=== PATIENT | male | born 1955 | race Caucasian/White ===

== ENCOUNTER 2017-10-06 13:20 | Observation (INO) ==
--- NOTE | 2017-10-06 14:06 | Emergency Department Note ---
Disposition Clinical Impression: Chest pain Qualifiers: Chest pain type: unspecified Qualified Code(s): R07.9 - Chest pain, unspecified Disposition: Admitted As Inpatient Condition: Good Referrals: Fermin Chris Jr, MD [Primary Care Provider] - Forms: ED Satisfaction Letter Time of Disposition: 15:16 Chest Pain HPI - General Chief Complaint: ED Chest Pain Stated Complaint: chest pain Time Seen by Provider: 10/06/17 13:47 Source: patient, family Mode of arrival: ambulatory Limitations: no limitations Vital Signs Reviewed: Yes Nursing Notes Reviewed: Yes - History of Present Illness HPI Narrative: Intermittent nonexertional chest pain since yesterday. Centrally located substernal without radiation. Pain is similar to when he had a myocardial infarction in 2002 when 3 stents were deployed. He had a stress test last year with no cardiac catheterization since 2002. Associated dizziness when he stands. Nonproductive cough. Left lower odontalgia. Pt complaint: chest pain Onset (ago): day(s) Duration: intermittent Onset: during rest Pain Location: substernal Severity scale (1-10): 5 Pain Radiation: none Improves with: nothing Worsens with: nothing Treatments prior to arrival chest pain: aspirin - Related Data Home Medications Medication Instructions Recorded Confirmed Aspirin [Ecotrin] 325 mg PO DAILY 05/14/16 10/06/17 Atorvastatin Calcium [Lipitor] 20 mg PO DAILY 05/14/16 10/06/17 Clopidogrel [Plavix] 75 mg PO DAILY 05/14/16 10/06/17 Lisinopril [Zestril] 10 mg PO DAILY 05/14/16 10/06/17 Metoprolol XL (24 HR) Succ [Toprol 100 mg PO DAILY 05/14/16 10/06/17 Xl] Allergies Allergy/AdvReac Type Severity Reaction Status Date / Time No Known Allergies Allergy Verified 10/06/17 14:39 All systems ED: reviewed and negative except as stated. Constitutional: Reports: as per HPI Eyes: Reports: as per HPI ENT ED: Reports: dental pain Cardiovascular: Reports: chest pain Respiratory: Reports: cough Gastrointestinal: Reports: as per HPI Genitourinary: Reports: as per HPI Musculoskeletal: Reports: as per HPI Integumentary: Reports: as per HPI Neurological: Reports: other (Dizziness) Psychiatric: Reports: as per HPI Endocrine: Reports: as per HPI Hematological/Lymphatic: Reports: as per HPI Allergic/Immunologic: Reports: as per HPI Chest Pain PMH - Past Medical History Medical history: Reports: coronary artery disease, hyperlipidemia, hypertension Psychiatric history: Reports: no psych history - Social History Smoking Status: Current every day smoker Alcohol use: Reports: rarely Drug use: Reports: none Physical Exam - General Limitations: no limitations General appearance: alert - Head Head exam: atraumatic - Eye Eye exam: Present: normal appearance - ENT ENT exam: normal exam - Neck Neck exam: Present: normal inspection, full ROM - Chest Chest inspection: Present: normal inspection, symmetric chest wall rise - Respiratory Respiratory exam: Present: other (Expiratory rhonchi). Absent: respiratory distress - Cardiovascular Cardiovascular exam: Present: regular rate, normal rhythm, normal heart sounds - Abdominal Exam Abdominal exam: Present: soft, Non-Tender Abdominal tenderness: Absent: RUQ, epigastrium - Rectal Exam Rectal exam: Present: deferred - Extremities Exam Extremities exam: Present: normal inspection - Neurological Exam Neurological exam: Present: alert, oriented X3, CN II-XII intact - Psychiatric Psychiatric exam: Present: normal affect, normal mood - Skin Skin exam: Present: warm, dry, intact Course Course Narrative: Patient with a known history of coronary artery disease and 3 cardiac stents deployed in 2002 presents with intermittent chest pain since yesterday. Pain free at the time of my exam. ECG obtained and reviewed by me. Workup initiated. - Reevaluation(s) Reevaluation #1: Test results discussed with patient and family. I will request admission Vital Signs Temperature 98.6 F 10/06/17 13:22 Pulse Rate 87 10/06/17 13:22 Respiratory Rate 14 10/06/17 13:22 Blood Pressure 140/78 10/06/17 13:22 O2 Sat by Pulse Oximetry 96 10/06/17 13:22 Temperature 98.6 F 10/06/17 14:20 Pulse Rate 87 10/06/17 14:20 Respiratory Rate 14 10/06/17 14:20 Blood Pressure 140/78 10/06/17 14:20 O2 Sat by Pulse Oximetry 96 10/06/17 14:20 Oxygen Delivery Oxygen Delivery Room Air Chest Pain - Lab Data Lab results reviewed: Yes I reviewed the patient's lab results. Result diagrams: 10/06/17 14:02 10/06/17 14:02 Lab Results 10/06/17 10/06/17 10/06/17 Range/Units 14:02 14:02 14:02 WBC 13.2 H (4.3-11.1) K/mcL RBC 5.01 (4.19-5.50) M/mcL Hgb 14.8 (12.9-16.9) g/dL Hct 44.5 (37.5-50.1) % MCV 88.8 (83.0-100.0) fL MCH 29.5 (28.0-33.3) pg MCHC 33.3 (31.6-35.5) g/dL RDW 13.4 (11.5-14.5) % Plt Count 290 (140-400) K/mcL MPV 9.4 (9.4-12.4) fL Immature Gran % 0.4 (0-4) % Seg Neutrophils % 69.5 % Lymphocytes % 19.9 % Monocytes % 7.9 % Eosinophils % 1.8 % Basophils % 0.5 % Neutrophils # 9.2 H (1.6-8.9) K/mcL Lymphocytes # 2.6 (0.6-4.6) K/mcL Monocytes # 1.0 (0.0-1.3) K/mcL Eosinophils # 0.2 (0.0-0.6) K/mcL Basophils # 0.1 (0.0-0.2) K/mcL PT 11.9 (9.4-12.1) Seconds INR 1.1 APTT 28.6 (26.0-36.0) Seconds Sodium 136 (136-145) mEq/L Potassium 3.8 (3.5-5.1) mEq/L Chloride 105 (98-107) mEq/L Carbon Dioxide 25 (23-29) mEq/L BUN 18 (8-23) mg/dL Creatinine 0.91 (0.70-1.30) mg/dL Est GFR ( Amer) > 60 (> 60) Est GFR (Non-Af Amer) > 60 (> 60) BUN/Creatinine Ratio 20 (6-26) Glucose 93 (70-105) mg/dL Calculated Osmolality 284 (280-300) Calcium 9.3 (8.6-10.3) mg/dL Total Bilirubin 0.5 (0.3-1.0) mg/dL AST 16 (13-39) Units/L ALT 16 (7-52) Units/L Alkaline Phosphatase 91 (34-104) Units/L Troponin I < 0.03 (< 0.04) ng/mL Serum Total Protein 7.0 (6.4-8.9) g/dL Albumin 4.0 (3.5-5.7) g/dL Globulin 3.0 (2.4-3.5) g/dL Albumin/Globulin Ratio 1.3 (1.1-2.2) - Radiology Data Radiology results reviewed: Yes I reviewed the patient's radiology results. - EKG Data EKG attestation: Yes I reviewed and interpreted this EKG. EKG results narrative: Normal sinus rhythm rate 68 CA 142 QRS 94 QT/QTC 368/35. No acute ST segment elevation. Study compared to previous dated 05/14/69 Heart Score - Score History: Slightly Suspicious EKG: Non Specific repolarisation Disturbance Age: 45-65 Risk Factors: Equal/Greater than 3 risk factor or history of atherosclerotic disease Troponin: Less than normal limit HEART Score Total: 4
[2017-10-06 15:10] LABS: Basophils # 0.1 K/mcL (0.0-0.2); Basophils % 0.5 %; Eosinophils # 0.2 K/mcL (0.0-0.6); Eosinophils % 1.8 %; Hematocrit 44.5 % (37.5-50.1); Hemoglobin 14.8 g/dL (12.9-16.9); INR 1.1; Immature Granulocytes % 0.4 % (0-4); Lymphocytes # 2.6 K/mcL (0.6-4.6); Lymphocytes % 19.9 %; Mean Corpuscular HGB Conc 33.3 g/dL (31.6-35.5); Mean Corpuscular Hemoglobin 29.5 pg (28.0-33.3); Mean Corpuscular Volume 88.8 fL (83.0-100.0); Mean Platelet Volume 9.4 fL (9.4-12.4); Monocytes % 7.9 %; Neutrophils # 9.2 K/mcL (1.6-8.9); Platelet Count 290 K/mcL (140-400); Prothrombin Time 11.9 Seconds (9.4-12.1); Red Blood Count 5.01 M/mcL (4.19-5.50); Red Cell Distribution Width 13.4 % (11.5-14.5); Segmented Neutrophils % 69.5 %
[2017-10-06 15:12] LABS: Activated Partial Thrombo Time 28.6 Seconds (26.0-36.0)
[2017-10-06 15:23] LABS: Alanine Aminotransferase 16 Units/L (7-52); Albumin/Globulin Ratio 1.3 (1.1-2.2); Alkaline Phosphatase 91 Units/L (34-104); Aspartate Amino Transferase 16 Units/L (13-39); BUN/Creatinine Ratio 20 (6-26); Bilirubin,Total 0.5 mg/dL (0.3-1.0); Blood Urea Nitrogen 18 mg/dL (8-23); Calcium 9.3 mg/dL (8.6-10.3); Carbon Dioxide 25 mEq/L (23-29); Chloride 105 mEq/L (98-107); Glucose 93 mg/dL (70-105); Osmolality,Calculated 284 (280-300); Potassium 3.8 mEq/L (3.5-5.1); Sodium 136 mEq/L (136-145); Troponin I < 0.03 ng/mL (< 0.04); eGFR For African Americans > 60 (> 60); eGFR For Non-African Americans > 60 (> 60)
[2017-10-06] MEDS ORDERED: Naloxone 0.4 MG/ML INJ IVP PRN (17:01)
[2017-10-06] MEDS ORDERED: *HR* HYDROcodone/Acet 5/325 mg TABLET PO PRN (17:07)
[2017-10-06] MEDS ORDERED: Acetaminophen 325 MG TABLET PO PRN (17:07)
[2017-10-06] MEDS ORDERED: Ondansetron 4 MG/2 ML VIAL IVP PRN (17:13)
[2017-10-06] MEDS ORDERED: Nitroglycerin 0.4 MG TAB.SUBL SL PRN (17:14)
--- NOTE | 2017-10-06 17:21 | Internal Med History&Physical ---
<RadhaSchuyler Qureshi - Last Filed: 10/06/17 17:57> Date of Encounter: 10/06/17 Time of Encounter: 16:00 Internal Medicine - H&P: HPI Chief complaint: CP Admitted From: Emergency Dept Plans for Post Hospital Care: Home History of present illness: Mr. Mcdonnell is a 62 year old male w/PMH of CAD, previous FL in 2002 w/stents x3, defibrillator, HTN, and HLD presents from the ED w/CC of CP that began yesterday approx at noon as non-exertional and intermittent. Pt. states pain returned today as centralized pressure that moved to left and right breast and was accompanied by SOB, weakness, abdominal pain, nausea, dizziness, diaphoresis , and jaw pain. Pt. does not recall previous FL in 2002 d/t being coded. No alleviating or aggravating factors. Pt. states he works for [employer] and is active. He reports last cardiac w/u was 04/2016. Pt. denies recent illness, fever , chills, vomiting, headache, changes in vision, palpitations, unusual bleeding , diarrhea, constipation, numbness, tingling, pre-syncope, or syncope. Past Med Surg Social Fam HX - Past Medical History Source: patient, old records reviewed, obtained from family Medical history: coronary artery disease, hyperlipidemia, hypertension Additional medical history: ISCHEMIC CARDIOMYOPATHY Psychiatric history: no psych history - Past Surgical History Surgical History: angioplasty/stent (x3 in 2002) Additional surgical history: ICD PLACEMENT 2002, ICD GEN CHANGE 2009, CARDIAC STENTS X 3 - Social History Smoking Status: Current every day smoker Packs per day: 1 PPD Smokeless Tobacco Status: No Alcohol use: rarely Drug use: none Occupational status: employed Current living situation: Home, With Family Activity Level: Independent ambulation, Very active Recent Out of Country Travel Within the Last 8 Weeks: No Exposure or Possible Exposure to Illness During Travel: No - Family History Father Race: Family Member Ethnicity: Non- Living Status: Age at : 76 Cause of : FL Hx Family Cardiac Disorders: Yes (CAD, [place]) Hx Family Respiratory Disorders: Yes (Asthma, Emphysema) Mother Race: Family Member Ethnicity: Non- Living Status: Age at : 80 Cause of : [place] Hx Family Cardiac Disorders: Yes (CAD, [place]) Hx Family Endocrine Disorder: Yes (DM) Brother Race: Family Member Ethnicity: Non- Living Status: Age at : 73 Cause of : [place] Hx Family Cardiac Disorders: Yes (FL, HD) Hx Family Respiratory Disorders: Yes (Asthma, Emphysema) Sister Race: Family Member Ethnicity: Non- Living Status: Age at : 70 Cause of : [place] Hx Family Endocrine Disorder: Yes (DM) Internal Medicine - H&P: Meds Aspirin [Ecotrin] 325 mg PO DAILY 05/14/16 [History] Atorvastatin Calcium [Lipitor] 20 mg PO DAILY 05/14/16 [History] Clopidogrel [Plavix] 75 mg PO DAILY 05/14/16 [History] Lisinopril [Zestril] 10 mg PO DAILY 05/14/16 [History] Metoprolol XL (24 HR) Succ [Toprol Xl] 100 mg PO DAILY 05/14/16 [History] 3 Allergy/AdvReac Type Severity Reaction Status Date / Time No Known Allergies Allergy Verified 10/06/17 14:39 All Systems PM: A 10-system review of systems was performed and is negative for pertinent findings except as documented above in the HPI. - Constitutional Constitutional: as per HPI, fatigue, weakness, no chills, no fever(s), no night sweats - EENT Eyes: no change in vision, no discharge, no pain, no photophobia Ears: no ear discharge, no ear pain, no tinnitus Nose, mouth and throat: no dysphagia, no nasal discharge, no neck pain, no sore throat - Breasts Breasts: as per HPI - Cardiovascular Cardiovascular ROS IM: as per HPI, chest pain, diaphoresis, dyspnea, dyspnea on exertion, lightheadedness, no palpitations, no syncope - Respiratory Respiratory: as per HPI, cough, dyspnea, dyspnea on exertion, no wheezing, no excessive phlegm production - Gastrointestinal Gastrointestinal: as per HPI, nausea, no abdominal pain, no diarrhea, no hematemesis, no hematochezia, no melena, no vomiting - Genitourinary Genitourinary ROS male: as per HPI - Musculoskeletal Musculoskeletal ROS IM: no numbness, no tingling - Integumentary Integumentary IM: no rash, no unusual bruising - Neurological Neurological ROS: as per HPI, dizziness, weakness, no confusion, no convulsions , no focal weakness, no numbness, no tingling, no tremor(s) - Psychiatric Psychiatric: as per HPI - Endocrine Endocrine IM: as per HPI - Hematologic/Lymphatic Hematologic/Lymphatic: no easy bruising - Allergic/Immunologic Allergic/Immunologic: as per HPI - Constitutional Vitals: Temp Pulse Resp BP Pulse Ox 98.6 F 87 20 116/83 96 10/06/17 14:20 10/06/17 14:20 10/06/17 16:47 10/06/17 16:47 10/06/17 14:20 General appearance: Present: cooperative, A&O X 3, pleasant, no acute distress, obese, answers questions appropriately - Head Head exam: Present: atraumatic, normocephalic - Eye Eye exam: Present: PERRL, conjuntiva pink, sclera anicteric Pupils: Present: PERRL - ENT ENT exam: Present: normal exam - Neck Neck exam general surgery: Present: normal inspection, supple, trachea midline. Absent: lymphadenopathy - Respiratory Respiratory exam: Present: CTAB. Absent: accessory muscle use, rales, rhonchi, wheezes - Cardiovascular Cardiovascular exam: Present: RRR, +S1, +S2. Absent: diastolic murmur, gallop, rubs, systolic murmur - GI/Abdominal GI/Abdominal exam: Present: normal bowel sounds, soft, no peritoneal signs. Absent: distended, tenderness - Rectal Rectal exam: Present: deferred - Additional comments: exam deferred. - Extremities Exam Extremities exam: Present: warm, radial pulses palpable and symmetrical. Absent : calf tenderness, cyanotic, pedal edema - Back Exam Back exam: Present: normal inspection - Neurological Exam Neurological exam: Present: CN II-XII intact, oriented X3, no focal deficits. Absent: pronater drift, facial droop, speech deficit - Psychiatric Psychiatric exam: Present: normal affect, normal mood - Skin Skin exam: Present: dry, intact Internal Med - H&P Results - Labs CBC & Chem 7: 10/06/17 14:02 10/06/17 14:02 - EKG Data EKG shows normal: sinus rhythm Rate: normal - EKG Data Prior EKG available for review: yes EKG comments: 10/06/17 17:28 EKG dated 05/14/16 shows sinus rhythm. EKG dated 10/06/17 shows sinus rhythm and normal ECG. - Diagnostic Studies Chest x-ray Additional comments: Impressions Chest X-Ray 10/06/17 13:39 IMPRESSION: No evidence of acute cardiopulmonary disease. D/ / Joe Malin MD / Joe Malin MD Interpreting Provider: Joe Malin MD - Assessment and plan (1) Chest pain Current Visit: Yes Status: Acute Assessment and plan: Acute CP that began yesterday approx at noon as non-exertional and intermittent. Pt. states pain returned today as centralized pressure that moved to left and right breast and was accompanied by SOB, weakness, abdominal pain, nausea, dizziness, diaphoresis, and jaw pain. Pt. does not recall previous [place] in 2002 d/t being coded. No alleviating or aggravating factors. Pt. and report that pt. is under a lot of stress currently. Last cardiac w/u in 04/2016. Initial troponin <0.03. Will trend. Continuous cardiac telemetry. Echocardiogram. Aspirin. High dose of Lipitor now. Nitro SL PRN. NPO @ midnight for a.m. stress test. Consider Cardiology consult if troponins, Echocardiogram, and/or stress test results abnormal. Discussed pt. w/Dr. Purcell who agrees w/ plan of care. Pt. is high risk for cardiac event and further morbidity d/t current CP sx, previous hx of [place] in 2002 when pt. coded and 3 stents placed, strong familial hx of FL/CAD (father, mother, brother); and risk factors of current tobacco abuse, obesity, CAD, HTN, and HLD. Observation. Qualifiers: Chest pain type: other chest pain Qualified Code(s): R07.89 - Other chest pain; R07.8 - Other chest pain (2) SOB (shortness of breath) Current Visit: Yes Status: Acute Assessment and plan: Acute SOB accompanying CP sx. Pt. reports being very active w/his job. Denies home O2, use of inhalers, or home breathing txs. Supplemental O2 w/titration and SpO2 monitoring PRN. (3) Nausea Current Visit: Yes Status: Acute Assessment and plan: Acute nausea accompanying CP sx. Denies nausea on exam. IVP Zofran 4 mg Q6HR PRN for N/V. (4) Unsteadiness on feet Current Visit: Yes Status: Acute Assessment and plan: Acute unsteadiness on feet accompanying CP sx. Pt. states he is normally very active. Falls/safety precautions and up with assist only. (5) CAD (coronary artery disease) Current Visit: Yes Status: Chronic Assessment and plan: Hx of chronic CAD w/previous [place] in 2002 w/placement of stents x3. Last cardiac w /u in 04/2016. Continuous cardiac telemetry. Echocardiogram ordered. Continue pts. Aspirin, Lipitor, Plavix, lisinopril, and metoprolol. Qualifiers: Coronary Disease-Associated Artery/Lesion type: [place] artery [place] vs. transplanted heart: [place] heart Associated angina: angina presence unspecified Qualified Code(s): I25.10 - Atherosclerotic heart disease of [place] coronary artery without angina pectoris (6) HTN (hypertension) Current Visit: Yes Status: Chronic Assessment and plan: Hx of chronic HTN. Monitor pt. and VS. Continue pts. Lisinopril and metoprolol. Qualifiers: Hypertension type: essential hypertension Qualified Code(s): I10 - Essential (primary) hypertension (7) HLD (hyperlipidemia) Current Visit: Yes Status: Chronic Assessment and plan: Hx of chronic HLD. Lipid panel in a.m. labs. Continue pts. Lipitor. Qualifiers: Hyperlipidemia type: pure hypercholesterolemia Qualified Code(s): E78.00 - Pure hypercholesterolemia, unspecified; E78.0 - Pure hypercholesterolemia (8) DVT prophylaxis Current Visit: Yes Status: Acute Assessment and plan: Heparin 5000 units SQ every 8 for DVT prophylaxis. Monitor patient for signs of bleeding. - Time Spent With Patient Total time spent is greater than 50% in coordination of care (as documented) at patient's floor/unit and/or counseling patient: Greater than 35 minutes <Rich Purcell - Last Filed: 10/06/17 18:54> Date of Encounter: 10/06/17 Internal Medicine - H&P: HPI History of present illness: Mr. Mcdonnell is a 62 year old male All Systems PM: A 10-system review of systems was performed and is negative for pertinent findings except as documented above in the HPI. - Constitutional Vitals: Temp Pulse Resp BP Pulse Ox 98.2 F 80 19 130/75 99 10/06/17 17:49 10/06/17 17:49 10/06/17 17:49 10/06/17 17:49 10/06/17 17:49 Internal Med - H&P Results - Labs CBC & Chem 7: 10/06/17 14:02 10/06/17 14:02 - Attending Attestation I have personally performed a face to face evaluation on this patient. I have reviewed and agree with the care plan. History and Exam by me shows: 62 y/o male with significant CAD history presented with mid sternal CP with radiation to both shoulders and neck. Currently asymptomatic. Troponin negative thus far. Exam alert Comfortable Mucus membranes dry Heart distant and regular Lungs clear Abd soft I/P 1. ACS - agree with plan. Will get echo and stress in AM. Further diagnoses and plan as above. - Assessment and plan (1) Chest pain Current Visit: Yes Status: Acute Qualifiers: Chest pain type: other chest pain Qualified Code(s): R07.89 - Other chest pain; R07.8 - Other chest pain (2) SOB (shortness of breath) Current Visit: Yes Status: Acute (3) Nausea Current Visit: Yes Status: Acute (4) Unsteadiness on feet Current Visit: Yes Status: Acute (5) CAD (coronary artery disease) Current Visit: Yes Status: Chronic Qualifiers: Coronary Disease-Associated Artery/Lesion type: [place] artery [place] vs. transplanted heart: [place] heart Associated angina: angina presence unspecified Qualified Code(s): I25.10 - Atherosclerotic heart disease of [place] coronary artery without angina pectoris (6) HTN (hypertension) Current Visit: Yes Status: Chronic Qualifiers: Hypertension type: essential hypertension Qualified Code(s): I10 - Essential (primary) hypertension (7) HLD (hyperlipidemia) Current Visit: Yes Status: Chronic Qualifiers: Hyperlipidemia type: pure hypercholesterolemia Qualified Code(s): E78.00 - Pure hypercholesterolemia, unspecified; E78.0 - Pure hypercholesterolemia (8) DVT prophylaxis Current Visit: Yes Status: Acute - Time Spent With Patient Total time spent is greater than 50% in coordination of care (as documented) at patient's floor/unit and/or counseling patient:
[2017-10-06] MEDS: *HR* Heparin 5,000 UNIT/ML VIAL SQ SCH (21:43)
[2017-10-07 02:17] LABS: Basophils # 0.1 K/mcL (0.0-0.2); Basophils % 0.7 %; Eosinophils # 0.4 K/mcL (0.0-0.6); Hemoglobin 14.1 g/dL (12.9-16.9); Immature Granulocytes % 0.3 % (0-4); Lymphocytes # 2.6 K/mcL (0.6-4.6); Lymphocytes % 22.6 %; Mean Corpuscular HGB Conc 33.6 g/dL (31.6-35.5); Mean Corpuscular Hemoglobin 29.6 pg (28.0-33.3); Mean Corpuscular Volume 88.1 fL (83.0-100.0); Mean Platelet Volume 9.1 fL (9.4-12.4); Monocytes # 0.9 K/mcL (0.0-1.3); Monocytes % 8.1 %; Neutrophils # 7.6 K/mcL (1.6-8.9); Platelet Count 255 K/mcL (140-400); Red Blood Count 4.77 M/mcL (4.19-5.50); Red Cell Distribution Width 13.3 % (11.5-14.5); Segmented Neutrophils % 65.3 %
[2017-10-07 02:34] LABS: Alanine Aminotransferase 14 Units/L (7-52); Albumin 3.5 g/dL (3.5-5.7); Albumin/Globulin Ratio 1.3 (1.1-2.2); Alkaline Phosphatase 81 Units/L (34-104); Aspartate Amino Transferase 15 Units/L (13-39); BUN/Creatinine Ratio 17 (6-26); Bilirubin,Total 0.6 mg/dL (0.3-1.0); Blood Urea Nitrogen 15 mg/dL (8-23); Calcium 8.7 mg/dL (8.6-10.3); Carbon Dioxide 25 mEq/L (23-29); Chloride 107 mEq/L (98-107); Chol/HDL Ratio 2.9 (0-4.9); Cholesterol 100 mg/dL (< 200); Globulin 2.7 g/dL (2.4-3.5); Glucose 106 mg/dL (70-105); HDL Cholesterol 34 mg/dL (40-59); LDL Cholesterol,Calculated 50 mg/dL (0-99); Magnesium 1.9 mg/dL (1.6-2.6); Osmolality,Calculated 283 (280-300); Sodium 136 mEq/L (136-145); Total Protein 6.2 g/dL (6.4-8.9); Triglycerides 80 mg/dL (< 150); eGFR For African Americans > 60 (> 60); eGFR For Non-African Americans > 60 (> 60)
[2017-10-07] MEDS: *HR* Heparin 5,000 UNIT/ML VIAL SQ SCH (04:56)
[2017-10-07] MEDS ORDERED: Regadenoson 0.4 MG/5 ML SYRINGE IVP ONE (06:09)
[2017-10-07] MEDS ORDERED: Metoprolol XL (24 HR) Succ 50 MG TAB.ER.24H PO SCH (09:00)
[2017-10-07] MEDS ORDERED: Aspirin Enteric Coated 325 MG Tablet PO SCH (09:00)
[2017-10-07 10:54] VITALS: BP 121/71
--- NOTE | 2017-10-07 13:12 | Discharge Summary ---
- NOTES TO OUTPATIENT PROVIDER Notes to Outpatient Provider: Pt presented with chest discomfort. Troponin and stress test negative. Echo unchanged. To follow up with cardiology soon in office. He also had some symptoms consistent with GI issues - Protonix ordered for a month. Orders not resulted at time of discharge: Pending orders 10/06/17 17:48 NM brendon perf SPECT multi [NM] Routine 10/08/17 04:00 Complete Blood Count [HEME] AM 0400 Comprehensive Metabolic Panel AM 0400 10/09/17 04:00 Complete Blood Count [HEME] AM 0400 Comprehensive Metabolic Panel AM 0400 Date of Encounter: 10/07/17 Time of Encounter: 12:30 - Discharge Diagnosis (1) Chest pain Priority: Primary Status: Suspected Qualifiers: Chest pain type: chest pain due to myocardial ischemia Qualified Code(s): I20.0 - Unstable angina (2) SOB (shortness of breath) Priority: Secondary Status: Resolved (3) Nausea Priority: Secondary Status: Resolved (4) Unsteadiness on feet Priority: Secondary Status: Resolved (5) CAD (coronary artery disease) Priority: Secondary Status: Chronic Qualifiers: Coronary Disease-Associated Artery/Lesion type: [place] artery [place] vs. transplanted heart: [place] heart Associated angina: angina presence unspecified Qualified Code(s): I25.10 - Atherosclerotic heart disease of [place] coronary artery without angina pectoris (6) HTN (hypertension) Priority: Secondary Status: Chronic Qualifiers: Hypertension type: essential hypertension Qualified Code(s): I10 - Essential (primary) hypertension (7) HLD (hyperlipidemia) Priority: Secondary Status: Chronic Qualifiers: Hyperlipidemia type: mixed hyperlipidemia Qualified Code(s): E78.2 - Mixed hyperlipidemia (8) Tobacco abuse Priority: Secondary Status: Chronic Hospital course: Mr. Mcdonnell is a 62 year old male with hx of CAD s/p stents presented to ED with substernal chest discomfort radiating to neck. He was evaluated and subsequently placed in observation. Mr Mcdonnell was placed in observation on med [facility]. He had serial labs which were negative and his symptoms improved. He had echo which was unchanged and nuclear stress which was negative. He was able to ambulate in the hallway without symptoms. At this time he is afebrile and feels at baseline. He is ready for discharge home with close outpatient follow up. Discharge discussed with: patient, family - Time Spent with Patient Total time spent providing and/or coordinating discharge services: 42 min - Discharge Medications Prescriptions: Nitroglycerin [Nitrostat] 0.4 mg SL Q5MIN PRN #1 bottle PRN Reason: Chest Pain Pantoprazole Sodium [Protonix] 20 mg PO DAILY #30 tab Home Medications: Aspirin [Ecotrin] 325 mg PO DAILY 05/14/16 [History] Atorvastatin Calcium [Lipitor] 20 mg PO DAILY 05/14/16 [History] Clopidogrel [Plavix] 75 mg PO DAILY 05/14/16 [History] Lisinopril [Zestril] 10 mg PO DAILY 05/14/16 [History] Metoprolol XL (24 HR) Succ [Toprol Xl] 100 mg PO DAILY 05/14/16 [History] Nitroglycerin [Nitrostat] 0.4 mg SL Q5MIN PRN #1 bottle 10/07/17 [Rx] Pantoprazole Sodium [Protonix] 20 mg PO DAILY #30 tab 10/07/17 [Rx] Allergies/Adverse Reactions: 3 Allergy/AdvReac Type Severity Reaction Status Date / Time No Known Allergies Allergy Verified 10/06/17 14:39 Date of admission: 10/06/17 15:40 Primary care physician: Fermin Chris Jr, MD Consults: 10/06/17 17:11 Consult to Protection Engineer [CONS] Routine Reason for SW Consult: Please assess patient for possible home needs for post -discharge planning. Discharging clinician: Rich Purcell Anticipated date of discharge: 10/07/17 - Constitutional Vitals: Temp Pulse Resp BP Pulse Ox 98.3 F 73 18 121/71 97 10/07/17 10:53 10/07/17 10:53 10/07/17 10:53 10/07/17 10:53 10/07/17 10:56 General appearance: Present: cooperative, A&O X 3, pleasant, answers questions appropriately - Head Head exam: Present: normocephalic - Eye Eye exam: Present: EOMI, conjuntiva pink - ENT ENT exam: Present: mucous membranes dry - Respiratory Respiratory exam: Present: CTAB. Absent: rales, rhonchi, wheezes - Cardiovascular Cardiovascular exam: Present: RRR. Absent: tachycardia - GI/Abdominal GI/Abdominal exam: Present: normal bowel sounds, soft. Absent: tenderness - Extremities Exam Extremities exam: Present: warm. Absent: tenderness - Neurological Exam Neurological exam: Present: alert, oriented X3 - Skin Skin exam: Present: dry, warm - Patient Status Disposition: Home, Self-Care Condition: Good Functional capacity at discharge: independent ambulation Overall status at discharge: patient is progressing back to baseline - Discharge Instructions Instructions: Angina (DC), Chest Pain (DC) Follow Up With: Fermin Chris Jr, MD [Primary Care Provider] - 10/21/17 11:00 am Becky Verde CNP [Partnered Physician] - (Office to contact patient at home to schedule an appointment. ) - Diet and Activity Activity: increase activity as tolerated Diet: advance to your usual diet
--- NOTE | 2017-10-08 16:26 | Electrocardiograph Report ---
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
== END 2017-10-07 14:45 | disposition home or self-care (01) ==
LOC: EMEROO 13:20 → 3BNU 13:20 → SUATTDRO 15:40 → 3BNU 17:43
PROVIDERS: ADMIT Hospitalist; ATTEND Internal Medicine

== ENCOUNTER 2019-12-05 05:05 | Observation (INO) ==
[2019-12-05] MEDS ORDERED: Isovue-370 500 ML BOTTLE IVP ONE (05:45)
[2019-12-05] MEDS ORDERED: 0.9 % Sodium Chloride 1,000 ML IV ONE (06:00)
[2019-12-05 06:02] LABS: Basophils # 0.1 K/mcL (0.0-0.2); Eosinophils # 0.1 K/mcL (0.0-0.6); Hematocrit 42.2 % (37.5-50.1); Hemoglobin 13.7 g/dL (12.9-16.9); Immature Granulocytes % 0.4 % (0-4); Lymphocytes # 1.2 K/mcL (0.6-4.6); Mean Corpuscular HGB Conc 32.5 g/dL (31.6-35.5); Mean Corpuscular Hemoglobin 33.3 pg (28.0-33.3); Mean Corpuscular Volume 102.4 fL (83.0-100.0); Mean Platelet Volume 11.4 fL (9.4-12.4); Monocytes # 0.8 K/mcL (0.0-1.3); Monocytes % 16.3 %; Neutrophils # 2.8 K/mcL (1.6-8.9); Platelet Count 100 K/mcL (140-400); Red Blood Count 4.12 M/mcL (4.19-5.50); Segmented Neutrophils % 56.3 %; White Blood Count 4.9 K/mcL (4.3-11.1)
[2019-12-05 06:10] LABS: Prothrombin Time 11.1 Seconds (9.4-12.1)
[2019-12-05 06:21] LABS: BUN/Creatinine Ratio 18 (6-26); Blood Urea Nitrogen 14 mg/dL (8-23); Calcium 9.5 mg/dL (8.6-10.3); Carbon Dioxide 26 mEq/L (23-29); Chloride 106 mEq/L (98-107); Glucose 107 mg/dL (70-105); Osmolality,Calculated 287 (280-300); Potassium 4.1 mEq/L (3.5-5.1); Sodium 138 mEq/L (136-145); eGFR For African Americans > 60 (> 60); eGFR For Non-African Americans > 60 (> 60)
[2019-12-05] MEDS ORDERED: Ketorolac 15 MG/ML VIAL IVP ONE (06:56)
[2019-12-05 07:52] LABS: Adenovirus Not Detected (Not Detect); Bordetella Pertussis Not Detected (Not Detect); Chlamydophila pneumoniae Not Detected (Not Detect); Coronavirus 229E Not Detected (Not Detect); Coronavirus HKU1 Not Detected (Not Detect); Coronavirus NL63 Not Detected (Not Detect); Coronavirus OC43 Not Detected (Not Detect); Human Metapneumovirus Not Detected (Not Detect); Human Rhinovirus/Enterovirus Not Detected (Not Detect); Influenza A Subtype 2009 H1 Not Detected (Not Detect); Influenza B Not Detected (Not Detect); Mycoplasma pneumoniae Not Detected (Not Detect); Parainfluenza Virus 1 Not Detected (Not Detect); Parainfluenza Virus 2 Not Detected (Not Detect); Parainfluenza Virus 3 Not Detected (Not Detect); Parainfluenza Virus 4 Not Detected (Not Detect); Respiratory Syncytial Virus Not Detected (Not Detect)
[2019-12-05 07:53] LABS: SARS-CoV-2 Not Detected (Not Detect)
[2019-12-05] MEDS ORDERED: Dexamethasone 4 MG/ML VIAL ONE (08:16)
[2019-12-05] MEDS ORDERED: *HR* Propofol 200 MG/20 ML VIAL IVP ONE (08:16)
[2019-12-05] MEDS ORDERED: Ondansetron 4 MG/2 ML VIAL ONE (08:16)
[2019-12-05] MEDS ORDERED: Lidocaine -MPF 2% 2 ML VIAL ONE (08:16)
[2019-12-05] MEDS ORDERED: *HR* FentaNYL (PF) 100 MCG/2 ML VIAL ONE (08:16)
[2019-12-05] MEDS ORDERED: Naloxone 0.4 MG/ML INJ IVP PRN ×2 (08:20→12:13)
[2019-12-05] MEDS ORDERED: Ondansetron 4 MG/2 ML VIAL IVP PRN ×3 (08:20→12:13)
[2019-12-05] MEDS ORDERED: Ketorolac 15 MG/ML VIAL IVP PRN ×2 (08:20→12:13)
[2019-12-05] MEDS ORDERED: ceFAZolin 2,000 MG in Water for inj. (sterile) 20 ML IVP ONE (08:37)
[2019-12-05] MEDS ORDERED: Metoprolol XL (24 HR) Succ 25 MG TAB.ER.24H PO SCH (09:00)
[2019-12-05] MEDS ORDERED: Aspirin Enteric Coated 81 MG Tablet PO SCH (09:00)
[2019-12-05] MEDS ORDERED: *HR* Labetalol 20 MG/4 ML SYRINGE IVP PRN (09:57)
[2019-12-05] MEDS ORDERED: *HR* HYDROmorphone (PF) 1 MG/ML SYRINGE IVP PRN (09:57)
[2019-12-05] MEDS ORDERED: *HR* Promethazine 25 MG/ML VIAL IVP PRN (09:57)
[2019-12-05] MEDS ORDERED: *HR* OxyCODONE Immed Rel 5 MG TABLET PO PRN (09:57)
[2019-12-05] MEDS ORDERED: CeFAZolin Syr 2,000MG/20 ML 2,000 MG/20 ML SYRINGE IVPB ONE (10:00)
[2019-12-05] MEDS ORDERED: Metoprolol XL (24 HR) Succ 50 MG TAB.ER.24H PO SCH (10:00)
[2019-12-05] MEDS ORDERED: *HR* PHENYLEPHRINE 1,000 MCG/10 ML SYRINGE IVP ONE (11:13)
[2019-12-05] MEDS ORDERED: *HR* Heparin 5,000 UNIT/ML VIAL SQ SCH (14:00)
[2019-12-05] MEDS: *HR* Heparin 5,000 UNIT/ML VIAL SQ SCH ×2 (14:03→21:14)
[2019-12-06 03:20] LABS: Hematocrit 36.3 % (37.5-50.1); Mean Corpuscular HGB Conc 33.3 g/dL (31.6-35.5); Mean Corpuscular Hemoglobin 34.4 pg (28.0-33.3); Mean Corpuscular Volume 103.1 fL (83.0-100.0); Mean Platelet Volume 11.1 fL (9.4-12.4); Platelet Count 100 K/mcL (140-400); Red Blood Count 3.52 M/mcL (4.19-5.50); Red Cell Distribution Width 16.7 % (11.5-14.5); White Blood Count 5.4 K/mcL (4.3-11.1)
[2019-12-06 03:22] LABS: Hemoglobin 12.1 g/dL (12.9-16.9)
[2019-12-06 03:35] LABS: BUN/Creatinine Ratio 24 (6-26); Blood Urea Nitrogen 20 mg/dL (8-23); Carbon Dioxide 26 mEq/L (23-29); Chloride 107 mEq/L (98-107); Glucose 182 mg/dL (70-105); Magnesium 1.9 mg/dL (1.6-2.6); Osmolality,Calculated 293 (280-300); Potassium 4.5 mEq/L (3.5-5.1); Sodium 138 mEq/L (136-145); eGFR For African Americans > 60 (> 60); eGFR For Non-African Americans > 60 (> 60)
[2019-12-06] MEDS: *HR* Heparin 5,000 UNIT/ML VIAL SQ SCH (06:50)
[2019-12-06 07:02] VITALS: BP 149/65
[2019-12-06] MEDS ORDERED: lisinopriL 10 MG TABLET PO SCH (09:00)
[2019-12-06] MEDS ORDERED: Aspirin Enteric Coated 81 MG Tablet PO SCH (09:00)
[2019-12-06] MEDS ORDERED: lisinopriL 5 MG TABLET PO SCH (09:00)
[2019-12-06] MEDS ORDERED: Metoprolol XL (24 HR) Succ 25 MG TAB.ER.24H PO SCH (09:00)
== END 2019-12-06 12:03 | disposition home or self-care (01) ==
LOC: EMEROOARM 05:05 → 2ANU 05:05 → 3ANU 09:25
PROVIDERS: ADMIT Internal Medicine; ATTEND Internal Medicine